=== PATIENT | male | born 1945 | race Two or more races ===

== ENCOUNTER 2023-03-18 18:14 | Emergency (ER) | payer OTHER ==
[~2023-03-18] VITALS: Ht 180.3 cm; Wt 90.7 kg
[2023-03-18] MEDS ORDERED: ZOCOR20 MG PO (18:25)
[2023-03-18] MEDS ORDERED: NORVASC5 MG PO (18:25)
[2023-03-18] MEDS ORDERED: DUI500 PO (20:58)
== END 2023-03-18 21:22 | disposition home or self-care (01) ==
LOC: ER 18:14
DX: S01.81XA Laceration without foreign body of other part of head, initial encounter (principal); W18.30XA Fall on same level, unspecified, initial encounter; Y93.9 Activity, unspecified; Y92.9 Unspecified place or not applicable; Y99.9 Unspecified external cause status